=== PATIENT | female | born 1990 | race Asian ===

== ENCOUNTER 2019-12-22 09:13 | Inpatient (IN) | payer OTHER ==
[~2019-12-22] VITALS: Ht 157.5 cm; Wt 55.8 kg
--- NOTE | ~2019-12-22 | OR ---
[facility] [address], [place] [address] Draft DATE OF OPERATION: 12/23/2019 SURGEON: Dora Ortez MD LINEWORKER: Pancho Hudson M.D. PREOPERATIVE DIAGNOSIS: Term , previous section x2. POSTOPERATIVE DIAGNOSIS: Term , previous section x2, delivered. PROCEDURE: Repeat section with low segment transverse uterine incision. ANESTHESIA: Spinal. ESTIMATED BLOOD LOSS: 500 mL. DRAINS: Crowley catheter. INDICATIONS AND FINDINGS: The patient is a 29-year-old female, 3, para 2, admitted at 39 weeks for repeat section. Her has been uncomplicated. At the time of surgery, she was delivered of a little girl from the ROT position via lower segment transverse uterine incision with Apgars of 9 and 9 and weight of 6 pounds 6 ounces. The lower uterine segment was extremely thin, but otherwise the uterus, placenta, tubes and ovaries appeared normal. DESCRIPTION OF PROCEDURE: The patient was prepped and draped in the supine position. A repeat Pfannenstiel skin incision was made and carried down through the fascia. The incision was extended laterally. The inferior and superior fascial flaps were then created. The muscles were sharply divided and the peritoneum entered sharply and the incision extended bluntly. Eduar retractor was placed. The uterine incision was made at the upper aspect of the peritoneal reflection. The baby was delivered with the above findings and handed off to PATIENT NAME: DEMARCO NEWELL OPERATIVE REPORT DATE OF : 86 REPORT #: [id number] PHYSICIAN: DORA ORTEZ MD PCP: NO PRIMARY CARE PHYSICIAN REPORT IS CONFIDENTIAL AND NOT TO BE RELEASED WITHOUT AUTHORIZATION [facility] [address], [place] [address] Draft the pediatric staff in attendance. The placenta was removed manually. The uterus was explored with a lap tape assuring no remaining fragments. The edges of the incision were identified and the uterus was closed in 2 layers. The first layer was a running locking stitch of 0-Monocryl and the second was a horizontal imbricating stitch of the 0-Monocryl. The abdomen was then copiously irrigated and inspected and bleeding points along the peritoneal edges were controlled. Following this, the retractor was removed, the peritoneum identified. ACell graft was laid over the lower segment to aid in healing. The peritoneum was then closed with a running suture of 3-0 Vicryl. The vessels were rendered hemostatic with cautery. A running suture of 0-Vicryl was required near the left upper aspect of the muscles because of bleeding as well. This layer was also irrigated and inspected and seen to be hemostatic. The muscles were reapproximated in the midline with interrupted sutures of 0-Vicryl. ACell powder was sprinkled over the muscles to aid in healing. The fascia was then closed from each angle to the midline with a running suture of 0-Vicryl. The subcutaneous tissue was irrigated, inspected and bleeding points controlled with cautery. The upper aspect was undermined to allow reapproximation of the incision. Interrupted sutures of 3-0 Vicryl placed, reapproximated the skin edges. The skin edges were closed with dia. All sponge and needle counts were correct. The patient tolerated the procedure well and was taken to the recovery room in good condition. MD CYNTHIA Alfaro/MODL /[id number] cc: Pancho Hudson MD Copies: PANCHO HUDSON MD ~ PATIENT NAME: DEMARCO NEWELL OPERATIVE REPORT DATE OF : 86 REPORT #: [id number] PHYSICIAN: DORA ORTEZ MD PCP: NO PRIMARY CARE PHYSICIAN REPORT IS CONFIDENTIAL AND NOT TO BE RELEASED WITHOUT AUTHORIZATION
[2019-12-23] MEDS ORDERED: PRENATAL VITAM1 EACH PO (07:38)
--- NOTE | 2019-12-23 11:12 | NUR ---
12/23/19 1112 Sheets,Rema 1059 PT ARRIVED TO ROOM 4, RESP EVEN AND UNLABORED. O2 6L IN PLACE VAI MASK. PT REACTIVE TO TACTILE STIMULI. PT DENIES PAIN AND NAUSEA. SPINAL LEVEL T-6. PT EASILY FALLS BACK TO SLEEP.
--- NOTE | 2019-12-24 09:12 | PR ---
[facility] [address] [facility] [place], [place] [address] Signed PP Progress Notes Datetime Report Generated by CPN: 12/24/2019 09:12 SUBJECTIVE: [id number] Pain: Within Normal Limits Nausea/Vomiting: Denies Flatus: Yes Vital Signs: [id number] Vital Signs: Reviewed; Within Normal Limits EXAM: Ongoing Cardiovascular: Normal Respiratory: Normal Abdomen/Uterus: Abnormal Lochia: Normal Vulva/Perineum: Not Done Breasts: Not Done CVA Tenderness: Not Done Extremities: Normal Incision: Normal Progress: Abnormal Exam Comments: Abdomen with active BS. Fundus firm, NT @ U-2. H/H 10.7/32.6, WBC 10.5, plat 153k IMPRESSION/PLAN/PROCEDURES: [id number] Progress Notes: Doing well though she desires to try breast feeding at least for several wks. Signing Physician: Dora Ortez MD Copies: ~ *Electronically Signed* 12/24/19911 DORA ORTEZ MD PATIENT NAME: DEMARCO NEWELL PROGRESS NOTE DATE OF : 86 PHYSICIAN: DORA ORTEZ MD RPT #: [id number] REPORT IS CONFIDENTIAL AND NOT TO BE RELEASED WITHOUT AUTHORIZATION
--- NOTE | 2019-12-25 09:26 | PR ---
[facility] [address] [facility] [place], [place] [address] Signed PP Progress Notes Datetime Report Generated by CPLinden: 12/25/2019 09:26 SUBJECTIVE: [id number] Pain: Within Normal Limits Nausea/Vomiting: Denies Flatus: Yes Bowel Movement: Yes Vital Signs: [id number] Vital Signs: Reviewed; Within Normal Limits EXAM: Met Cardiovascular: Not Done Respiratory: Not Done Abdomen/Uterus: Abnormal Lochia: Normal Vulva/Perineum: Not Done Breasts: Not Done CVA Tenderness: Not Done Extremities: Normal Incision: Normal Progress: Not Applicable Exam Comments: Abdomen with active BS. Fundus firm, NT @ U-2. IMPRESSION/PLAN/PROCEDURES: [id number] Impression: Normal Progression Plan: Remove Enrike; Discharge Procedures: None Progress Notes: Doing well. She is ready for D/C. Signing Physician: Dora Ortez MD Copies: ~ *Electronically Signed* 12/25/19925 DORA ORTEZ MD PATIENT NAME: DEMARCO NEWELL PROGRESS NOTE DATE OF : 86 PHYSICIAN: DORA ORTEZ MD RPT #: [id number] REPORT IS CONFIDENTIAL AND NOT TO BE RELEASED WITHOUT AUTHORIZATION
== END 2019-12-25 12:40 | disposition home or self-care (01) | DRG 788 ==
LOC: FBC 12-23 05:06
PROVIDERS: ADMIT Obstetrics & Gynecology
PROC: 10D00Z1 Extraction of Products of Conception, Low, Open Approach (ICD-10-PCS; principal; 2019-12-23 09:30)
DX: O34.211 Maternal care for low transverse scar from previous cesarean delivery (principal); N85.8 Other specified noninflammatory disorders of uterus; O32.2XX0 Maternal care for transverse and oblique lie, not applicable or unspecified; Z3A.39 39 weeks gestation of pregnancy; Z37.0 Single live birth
CPT/HCPCS: 01961; 36415; 85027; A9270; J0690; J1200; J2001; J2274; J2405; J2590; J7121